=== PATIENT | female | born 1995 | race Caucasian/White ===

== ENCOUNTER → 2017-03-12 14:03 | Outpatient (CLI) | payer OTHER, SELFPAY ==
[2017-03-12 16:38] LABS: Group B Strep DNA By PCR Negative (Negative); Internal Control PASS; Probe Check PASS; Specimen Processing Control PASS
== END ==
PROVIDERS: Visit Provider Obstetrics & Gynecology
DX: Z36.85 Encounter for antenatal screening for Streptococcus B (principal)
CPT/HCPCS: 87081; 87653

== ENCOUNTER 2017-04-01 17:00 | Inpatient (IN) | payer SELFPAY, OTHER ==
[2017-04-01 17:23] VITALS: BMI 28.1
[2017-04-01] MEDS: Lactated Ringers 1,000 ML 50 ML IV (18:00)
[2017-04-01 18:21] LABS: Hematocrit 36.4 % (37-47); Hemoglobin 12.5 g/dl (12.0-15.0); Mean Corp Hgb Conc 34.3 g/gl (32-36); Mean Corpuscular Hgb 30.5 pg (27.0-32.0); Mean Corpuscular Volume 88.8 fL (81-99); Mean Platelet Vol. 11.7 fl (6.2-12.0); Platelet Count 128 K/mm3 (150-450); RBC Distribution Width CV 12.9 % (11.6-14.6); RBC Distribution Width SD 41.6 fl (35.1-43.9); White Blood Count 7.9 K/mm3 (4.4-11.0)
[2017-04-01 18:22] LABS: Scan Indicated on CBC? Y/N NO
[2017-04-01] MEDS: miSOPROStol 25 MCG TABLET VAGINAL ×2 (18:32→22:30)
[2017-04-01] MEDS: Labetalol 200 MG Tablet PO (22:15)
[2017-04-02] MEDS: miSOPROStol 25 MCG TABLET VAGINAL (02:34)
[2017-04-02] MEDS: Labetalol 200 MG Tablet PO ×3 (06:16→22:06)
[2017-04-02] MEDS: 0.9% Normal Saline 100 ML IV.SOLN. INTRA-UTER (08:54)
--- NOTE | 2017-04-02 09:00 | PCM.PN.BLA ---
Progress Note LABOR PROGRESS NOTE Contractions are intensifying. Denies headache, vision changes. AVSS GEN - NAD, AAO x 3 FHR 135, moderate variability, + accelerations, no decelerations TOCO 5-6/10 min SVE 1/75/-3 A/P: 21yo G1 @ 39 3/7wga with h/o cHTN on Labetalol, IOL s/p cytotec with tachysystole -Contractions palpate mild to moderate -Advised krishnamurthy bulb placement. Krishnamurthy bulb risks and benefits reviewed, also discussed observation. Pt already s/p repositioning, IV fluid bolus with no spacing of contractions. Pt agreed to proceed with krishnamurthy bulb. -Krishnamurthy bulb placed with SROM shortly after placement, clear fluid -Will defer further medication induction until contractions space.
[2017-04-02] MEDS: Nalbuphine 10 MG/ML Ampul IV (09:27)
[2017-04-02] MEDS: Lactated Ringers 1,000 ML 50 ML IV ×2 (12:02→20:11)
[2017-04-02] MEDS: Oxytocin 30 units/NS 500 ml 30 UNITS/500 ML IV.SOLN IV (13:30)
--- NOTE | 2017-04-02 13:30 | PCM.PN.BLA ---
Progress Note LABOR PROGRESS NOTE Patient doing well overall and comfortable. AVSS FHR 120, moderate variability, + accelerations, no decelerations TOCO 4/10 min SVE 5/80/-2 per DOUGLAS Dorsey exam A/P: 21yo G1 @ 39.3wga with cHTN, IOL -Forbes bulb out -Will start pitocin - status reassuring
[2017-04-02] MEDS: Amnioinfusion- 0.9% NS 1,000 ML IV.SOLN. INTRA-UTER (16:12)
--- NOTE | 2017-04-02 18:40 | PCM.PN.BLA ---
Progress Note LABOR PROGRESS NOTE Comfortable with epidural. She is without complaints. AVSS GEN - NAD, AAO x 3 TOCO 3/10 min FHR 130, moderate variability, + accelerations, no decelerations. SVE /-1 per DOUGLAS Isaac at approx 1715h A/P: 21yo G1 @ 39 3/7wga in labor, Cat I FHR -Labor progressing, will leave pitocin off in interim -Continue in labor -Maternal and statuses overall reassuring
[2017-04-02] MEDS: 0.9% Saline Lock 10 ML Syringe IV (23:03)
[2017-04-02] MEDS: Amnioinfusion- 0.9% NS 1,000 ML IV.SOLN. 300 ML INTRA-UTER (23:41)
--- NOTE | 2017-04-02 23:47 | PCM.PN.BLA ---
Progress Note LABOR PROGRESS NOTE No complaints AVSS GEN - NAD, AAO x 3 SVE anterior cervical lip/90/+1, TORREY FHR 135, moderate variability, no accelerations, + decelerations - lates and earlies present, +variables TOCO 3-4/10 min A/P: 21yo G1 at 39 3/7wga in active labor, Cat II FHR -Decelerations present, will start amnioinfusion bolus for variable decelerations -Maternal repositioning -Will continue in labor at this time given progress -Pelvis adequate
[2017-04-03] MEDS: Lactated Ringers 1,000 ML 50 ML IV (00:16)
--- NOTE | 2017-04-03 03:03 | PCM.PN.BLA ---
Progress Note Patient reported with anterior lip for several hours and significant caput, but pelvis deemed adequate. Trial push and if successful reduction of lip then continue pushing.
--- NOTE | 2017-04-03 03:12 | PCM.PN.BLA ---
Progress Note LABOR PROGRESS NOTE epidural in place, redosed. BPs creeping up slightly with pt's pain. states painful spots at LLQ, back and near fundus IFM: overall category I tracing. with intermittent variables noted. 120-130s min to avg variability. Accels. UCs approx q 3 mins CX: caput noted. Trial push and unable to feel cervix anteriorly. Complete Still able to insert fingertip behind pubic symphysis so vtx still high, but caput at + 2 on exam. A/P: complete. begin pushing. Advised patient will need to watch for tolerance of pushing . Potential for C section discussed if failure to descend further with pushing.
[2017-04-03] MEDS: Oxytocin 30 units/NS 500 ml 30 UNITS/500 ML IV.SOLN 334 UNITS IV (05:08)
--- NOTE | 2017-04-03 05:10 | PLAC_PTH ---
PATIENT: VIKI CLAY LOC: [facility] U#:[id number] AGE/SX: 21/F ROOM: WP016 RE04/01/[address]: Dr. Jeri Rdz MD : 1995 BED: 1 DIS: 04/05/2017 SPEC #: [id number] RECD: 04/03/17 08:25 STATUS: PUNEET RECammie #: [id number] TANYA: 04/03/17 05:[address]: Jeri Rdz DEPT: SURGICAL PATHOLOGY RECD BY: Vladimir Moser ENTERED: 04/03/17 11:09 SP TYPE: PLACENTA OTHR DR: No Primary Care Phys Tissues: Placenta, NOS Procedures: Surgery Specimen Level V HEADER OPERATION: Vaginal delivery PRE-OP DIAGNOSIS: resuscitation TISSUE SUBMITTED: Placenta MICROSCOPIC DIAGNOSIS Placenta: Placental disc - third trimester placenta (377 gm). - Focal acute vasculitis of subamniotic blood vessels. - Focal area of intraparenchymal hemorrhage (1 cm in greatest dimension). Membranes ? acute chorioamnionitis. Umbilical cord - three blood vessels and acute funisitis. SJ:bharath 04/05/17 MICROSCOPIC DESCRIPTION Slides are reviewed. GROSS DESCRIPTION SPECIMEN: PLACENTA / CLINICAL INFORMATION: A. Weight: 3.084 kg B. Gestational Age: 39 weeks C. Sex: Male PLACENTAL WEIGHT (POST FIXATION): 377 gm PLACENTAL DIMENSIONS: 17 x 14 x 3 cm PLACENTAL SHAPE: Usual ovoid PLACENTAL WEIGHT FOR GESTATIONAL AGE: Within 10-99th percentile MEMBRANES - Present A. Insertion: Marginal B. Site of rupture from edge: At edge of placental disc C. Color of membrane: Hou-avery D. Abnormalities: None UMBILICAL CORD - Present A. Color: Hou-avery B. Insertion: Near central insertion C. Length: 26 cm D. Diameter: 1 cm E. Number of vessels: Three F. Abnormalities: None PLACENTAL DISC - Present A. Color of surface: Hou-avery B. surface abnormalities: None C. Maternal cotyledons: Intact with minimal tears D. Attached retro placental clot: No clot E. Cut surface: Dark red and spongy F. Lesions: Serial sections reveal a firm, hou-white lesion measuring 1 x 1 x 0.7 cm. G. Separate clot: Absent SECTIONS SUBMITTED: 1. Membrane roll and umbilical cord ( end notched) 2. Placental disc, and maternal surfaces, lesion 3. Placental disc, and maternal surfaces 4. Placental disc, and maternal surfaces AM:bharath 04/04/17 TC:2 CPT: 87776
--- NOTE | 2017-04-03 05:11 | PCM.OB.VAG ---
Vaginal Delivery Maternal Presentation: Medically Indicated Induction 39 wk unfavorable cervix, PIH induction Method of Induction: Pitocin, Forbes Bulb, Amniotomy, Cytotec Medical Reason for Induction: Gestational Hypertension Amniotic Membrane Rupture Type: Artificial Amniotic Fluid Description: Clear Final RYAN: 04/06/17 Gestational age: 39 Weeks and 4 Days doctor who attended delivery (if requested by OB): Imer Kitchen - for resuscitation. Date of Procedure: 04/03/17 Pre-Operative Diagnosis: 39 2/7 wk EGA PIH induction Post-Operative Diagnosis: 39 4/7 wk EGA PIH induction Surgery/ Procedure Performed: Vacuum Assisted Vaginal Delivery - single pull (pressure in green zone) with maternal push resulted in delivery of . Poor tone, no respiratory effort, and no spont cry. Team called in for resuscitation. Type of Anesthesia: Epidural Description of Procedure: Vacuum assisted vaginal delivery, + 2 station due to FHR declerations with pushing (into 80-90s) O2 applied by face mask also with pushing. Significant caput noted. Vacuum with single pull in green zone pressure, resulted in vaginal delivery. Loose nuchal cord reduced. Shoulders delivered quickly after cord reduced. with poor tone and no respiratory effort. Bulb suctioned OP and nares. Cord clamped x two and cut. to isolette for stimulation and then resuscitation. See records. Cord gases collected and sent. Placenta to path. PP exam: 2nd deg vaginal laceration and perineal laceration noted. repaired under epidural to hemostatic and intact with 3-0 vicryl. Placenta delivered by spont expulsion, expression. 3v , normal appearing, intact with trailing membranes. no meconium staining noted. Thin cord noted. EBL 350 Pt tolerated procedure well. Infant to maternal abdomen for bonding after initial transition resuscitation. Presentation: Vertex, TORREY Placental Delivery Description: Spontaneous, Expressed Placenta Disposition: Sent to Pathology Cord Vessel Description: 3 Vessels Cord Gases drawn per routine: ABG, VBG Cord Entanglement: Around neck x 1, loose Estimated Blood Loss: 350 A gender: Male - apgars to be determined after review Episiotomy Description: None Laceration: Midline, Perineal Extension/lac, Vaginal Extension/lac, 2nd degree Medications given after delivery: IV Pitocin Complications: None
--- NOTE | 2017-04-03 05:21 | OP.PCM_ITS ---
Vaginal Delivery Maternal Presentation: Medically Indicated Induction 39 wk unfavorable cervix, PIH induction Method of Induction: Pitocin, Forbes Bulb, Amniotomy, Cytotec Medical Reason for Induction: Gestational Hypertension Amniotic Membrane Rupture Type: Artificial Amniotic Fluid Description: Clear Final RYAN: 04/06/17 Gestational age: 39 Weeks and 4 Days doctor who attended delivery (if requested by OB): Imer Kitchen - for resuscitation. Date of Procedure: 04/03/17 Pre-Operative Diagnosis: 39 2/7 wk EGA PIH induction Post-Operative Diagnosis: 39 4/7 wk EGA PIH induction Surgery/ Procedure Performed: Vacuum Assisted Vaginal Delivery - single pull ( pressure in green zone) with maternal push resulted in delivery of . Poor tone, no respiratory effort, and no spont cry. Team called in for resuscitation. Type of Anesthesia: Epidural Description of Procedure: Vacuum assisted vaginal delivery, + 2 station due to FHR declerations with pushing (into 80-90s) O2 applied by face mask also with pushing. Significant caput noted. Vacuum with single pull in green zone pressure, resulted in vaginal delivery. Loose nuchal cord reduced. Shoulders delivered quickly after cord reduced. Infant with poor tone and no respiratory effort. Bulb suctioned OP and nares. Cord clamped x two and cut. to isolette for stimulation and then resuscitation. See records. Cord gases collected and sent. Placenta to path. PP exam: 2nd deg vaginal laceration and perineal laceration noted. repaired under epidural to hemostatic and intact with 3-0 vicryl. Placenta delivered by spont expulsion, expression. 3v , normal appearing, intact with trailing membranes. no meconium staining noted. Thin cord noted. EBL 350 Pt tolerated procedure well. to maternal abdomen for bonding after initial transition resuscitation. Presentation: Vertex, TORREY Placental Delivery Description: Spontaneous, Expressed Placenta Disposition: Sent to Pathology Cord Vessel Description: 3 Vessels Cord Gases drawn per routine: ABG, VBG Cord Entanglement: Around neck x 1, loose Estimated Blood Loss: 350 Infant A gender: Male - apgars to be determined after review Episiotomy Description: None Laceration: Midline, Perineal Extension/lac, Vaginal Extension/lac, 2nd degree Medications given after delivery: IV Pitocin Complications: None
--- NOTE | 2017-04-03 05:22 | DCINST_ITS ---
Discharge Diet: No Restrictions Discharge Activity: May Shower, May Take a Tub Bath May resume sexual activity in: 4-6 weeks Additional Activity Instructions:: Nothing in the vagina for 4-6 weeks. You may return to work/school in 6 weeks. Additional Instructions: If you experience any of the following, contact your healthcare provider. * Bleeding that soaks a pad every hour for 2 hours * Fever 100.4 or higher * Unrelieved abdominal pain * Problems urinating (including inability to urinate or burning while urinating) . * Visual changes * Severe headache * Flu-like symptoms * Pain or redness in one of both of your breasts * Pain, warmth, tenderness or swelling in your legs, especially the calf area * Frequent nausea and vomiting * Symptoms of depression or anxiety If you experience any of the following, call 911 or go to the nearest Emergency Room. * Chest pain * Problems breathing * Seizure activity * Partial or complete paralysis of a body part, slurred speech, weakness or drooping of the face, or a sudden inability to walk or hold your balance Allergies/Adverse Reactions: Allergies No Known Allergies Allergy (Verified 03/04/17 05:16) Medications to take at Discharge Vits [Prenatabs FA] 1 tablet PO DAILY 01/02/17 Labetalol [Trandate] 200 mg PO TID 03/03/17 [place] 3-6-9 Complex Softgel 1,200 mg PO DAILY 04/01/17 Orders to be completed after discharge: Electric breast pump Time Frame: 1 Year, Location: None Selected Please Follow Up With: Marlene Silverio MD - [phone] When: Call to make an appointment with your doctor in 6 weeks. If you had elevated Blood Pressure or 4th degree laceration you will need to be seen in 2 weeks. Primary Care Physician: Care Physician,No Primary [Primary Care Provider] - Proposed Discharge Date: 04/05/17
[2017-04-03] MEDS: Oxytocin 30 units/NS 500 ml 30 UNITS/500 ML IV.SOLN 167 UNITS IV (05:38)
[2017-04-03] MEDS: Labetalol 200 MG Tablet PO ×3 (06:16→21:47)
[2017-04-03] MEDS: Acetaminophen 500 MG Tablet PO (06:44)
[2017-04-03] MEDS: Prenatal Vits Tablet 1 TABLET PO (10:56)
[2017-04-03 10:58] VITALS: BP 113/53; PULSE 75; RESP 16; TEMP 36.9
[2017-04-03] MEDS: Ibuprofen 600 MG Tablet PO ×2 (11:41→21:50)
[2017-04-03 16:00] VITALS: BP 122/60; PULSE 76; RESP 16; TEMP 37
[2017-04-03 20:02] VITALS: BP 130/61; PULSE 72; RESP 16; TEMP 36.6; O2SAT 98
[2017-04-03 21:45] VITALS: BP 124/68; PULSE 85
[2017-04-04 00:35] VITALS: BP 134/58; PULSE 78; RESP 18; TEMP 36.7; O2SAT 99
[2017-04-04] MEDS: Acetaminophen 500 MG Tablet PO (00:35)
[2017-04-04 03:55] VITALS: BP 109/56; PULSE 67; RESP 20; TEMP 36.7
[2017-04-04] MEDS: Labetalol 200 MG Tablet PO ×3 (06:32→22:02)
[2017-04-04 06:40] VITALS: BP 110/51; PULSE 66
--- NOTE | 2017-04-04 06:59 | PCM.PN.OB ---
Subjective: PPD#1 Vacuum assisted vaginal delivery after prolonged labor Doing well Breast feeding. Pain control adequate. Baby in room and has an IV in place. and cultures pending. Infant required resuscitation at delivery. Doing well now. Good resolution of caput from delivery and advised pt of this as she is concerned. Objective: Sitting up in bed holding baby. - Physical Exam General: Alert, Oriented x3, Cooperative, No apparent distress HEENT: Atraumatic Neck: Supple Abdomen: Soft - Fundus firm NT at umbilicus Neurological: Cranial nerves II-XII grossly intact Psych/Mental Status: Normal Affect Vital Signs Temp Pulse Resp BP Pulse Ox 98.0 F 66 20 H 110/51 L 99 04/04/17 03:55 04/04/17 06:40 04/04/17 03:55 04/04/17 06:40 04/04/17 00:35 Oxygen Delivery Method Room Air Weight: 76.8 kg Body Mass Index (BMI) 28.1 Intake and Output for Last 24 Hours 04/02/17 04/03/17 04/04/17 23:59 23:59 23:59 Intake Total 5652 / 5652 4090 / 4090 Output Total 4250 / 4250 3400 / 3400 Balance 1402 / 1402 690 / 690 Assessment/Plan PPD#1 Stable pp. Continue care.
[2017-04-04 08:00] VITALS: BP 122/60; PULSE 70; RESP 16; TEMP 36.9; O2SAT 98
[2017-04-04] MEDS: Prenatal Vits Tablet 1 TABLET PO (09:17)
[2017-04-04] MEDS: Ibuprofen 600 MG Tablet PO ×2 (09:17→20:44)
[2017-04-04 14:00] VITALS: BP 123/64; PULSE 72; RESP 16; TEMP 37.2; O2SAT 99
[2017-04-04 20:35] VITALS: BP 135/63; PULSE 73; RESP 17; TEMP 36.8; O2SAT 98
[2017-04-05 01:15] VITALS: BP 129/60; PULSE 73; RESP 17; TEMP 36.5; O2SAT 99
[2017-04-05] MEDS: Labetalol 200 MG Tablet PO (06:31)
--- NOTE | 2017-04-05 07:27 | PCM.DC.SUM ---
Discharge Date and Diagnosis Date of Admission: 04/01/17 Date of Discharge: 04/05/17 - Secondary Discharge Diagnosis Chronic Problems Hypertension affecting (Chronic) 35 weeks gestation of (Chronic) Hospital Course and Treatment Summary of Care Provided: The patient is a 21 year old female at 39 1/7 wk EGA for induction with unfavorable cervix due to PIH. On labetolol for HTN. Long induction : Cytotec, Forbes bulb, AROM. Pitocin eventually resulted in vacuum assisted vaginal delivery. Baby with significant caput and delivered by vacuum due to FHR decelerations with pushing. Baby on IV antibiotics pending results of cultures. Patient's course uneventful. Home on PPD#2 Baby off IV antibiotics. Discharge Diet: No Restrictions Discharge Activity: May Shower, May Take a Tub Bath May resume sexual activity in: 4-6 weeks Additional Activity Instructions:: Nothing in the vagina for 4-6 weeks. You may return to work/school in 6 weeks. Home Medications: Medications to take at Discharge Vits [Prenatabs FA] 1 tablet PO DAILY 01/02/17 Labetalol [Trandate] 200 mg PO TID 03/03/17 [place] 3-6-9 Complex Softgel 1,200 mg PO DAILY 04/01/17 Other Amb Orders: Electric breast pump Time Frame: 1 Year, Location: None Selected Primary Care Physician: Care Physician,No Primary [Primary Care Provider] - Please Follow Up With: Marlene Silverio MD - [phone] Meaningful Use Info Meaningful Use Diagnoses (Choose all that apply): None applicable
--- NOTE | 2017-04-05 07:30 | DS.PCM_ITS ---
Discharge Date and Diagnosis Date of Admission: 04/01/17 Date of Discharge: 04/05/17 - Secondary Discharge Diagnosis Chronic Problems Hypertension affecting (Chronic) 35 weeks gestation of (Chronic) Hospital Course and Treatment Summary of Care Provided: The patient is a 21 year old female at 39 1/7 wk EGA for induction with unfavorable cervix due to PIH. On labetolol for HTN. Long induction : Cytotec, Forbes bulb, AROM. Pitocin eventually resulted in vacuum assisted vaginal delivery. Baby with significant caput and delivered by vacuum due to FHR decelerations with pushing. Baby on IV antibiotics pending results of cultures. Patient's course uneventful. Home on PPD#2 Baby off IV antibiotics. Discharge Diet: No Restrictions Discharge Activity: May Shower, May Take a Tub Bath May resume sexual activity in: 4-6 weeks Additional Activity Instructions:: Nothing in the vagina for 4-6 weeks. You may return to work/school in 6 weeks. Home Medications: Medications to take at Discharge Vits [Prenatabs FA] 1 tablet PO DAILY 01/02/17 Labetalol [Trandate] 200 mg PO TID 03/03/17 [place] 3-6-9 Complex Softgel 1,200 mg PO DAILY 04/01/17 Other Amb Orders: Electric breast pump Time Frame: 1 Year, Location: None Selected Primary Care Physician: Care Physician,No Primary [Primary Care Provider] - Please Follow Up With: Marlene Silverio MD - [phone] Meaningful Use Info Meaningful Use Diagnoses (Choose all that apply): None applicable
--- NOTE | 2017-04-05 07:30 | PCM.PN.OB ---
Subjective: PPD#2 Prolonged induction for PIH, on labetolol. Eventual vacuum assisted vaginal delivery. baby off IV antibiotics now. Nursing well. No concerns voiced. Would like to go home today if baby is rebased. - Physical Exam General: Alert, Oriented x3, Cooperative, No apparent distress HEENT: Atraumatic Neck: Supple Abdomen: Soft - Fundus firm NT, inferior to umbilicus Psych/Mental Status: Normal Affect Vital Signs Temp Pulse Resp BP Pulse Ox 97.7 F L 73 17 129/60 H 99 04/05/17 01:15 04/05/17 01:15 04/05/17 01:15 04/05/17 01:15 04/05/17 01:15 Oxygen Delivery Method Room Air Weight: 76.8 kg Body Mass Index (BMI) 28.1 Intake and Output for Last 24 Hours 04/03/17 04/04/17 04/05/17 23:59 23:59 23:59 Intake Total 4090 / 4090 Output Total 3400 / 3400 Balance 690 / 690 Assessment/Plan PPD#2 Stable pp. Dischg home. RTO In 2 wk for BP check, 6 wk for pp check.
[2017-04-05 09:30] VITALS: BP 114/56; PULSE 82; RESP 20; TEMP 37
[2017-04-05] MEDS: Prenatal Vits Tablet 1 TABLET PO (11:22)
[2017-04-05 13:55] LABS: Pathology Specimen OB SEE PATHOLOGY REPORT
== END 2017-04-05 12:00 | disposition home or self-care (01) | DRG 775 ==
PROVIDERS: Obstetrics & Gynecology; Admitting Provider Obstetrics & Gynecology; Visit Provider Obstetrics & Gynecology
DX: O13.4 Gestational [pregnancy-induced] hypertension without significant proteinuria, complicating childbirth (principal); O69.81X0 Labor and delivery complicated by cord around neck, without compression, not applicable or unspecified; O76 Abnormality in fetal heart rate and rhythm complicating labor and delivery; O70.1 Second degree perineal laceration during delivery; Z3A.39 39 weeks gestation of pregnancy; Z37.0 Single live birth
CPT/HCPCS: 59025; 59050; 85027; 86850; 86900; 88307; 99218; J7030; J7120; A4216; G0378

== ENCOUNTER → 2017-05-17 18:57 | Outpatient (CLI) | payer OTHER, SELFPAY ==
[2017-05-22 11:28] LABS: HPV Reflexed? NOT INDICATED
== END ==
PROVIDERS: Visit Provider Obstetrics & Gynecology
DX: Z12.4 Encounter for screening for malignant neoplasm of cervix (principal)
CPT/HCPCS: 88175; G0145